=== PATIENT | female | born 1940 | race Caucasian/White ===

== ENCOUNTER 2019-05-18 16:58 | Day surgery (SDC) | payer MEDICARE, OTHER ==
[2019-05-18] MEDS: LACTATED RINGER'S 1,000 ML IV (18:12)
[2019-05-18] MEDS ORDERED: CLINDAMYCIN 900 MG/D5W (PMX) 50 ML IVPB (18:30)
[2019-05-18] MEDS ORDERED: FENTAnyl 50 MCG/ML VIAL (19:19)
[2019-05-18] MEDS ORDERED: MIDAZOLAM 1 MG/ML 2 ML INJ (19:19)
[2019-05-18] MEDS ORDERED: ROPIVACAINE 0.5 % 30 ML VIAL (20:27)
[2019-05-18] MEDS ORDERED: LIDOCAINE 2% (SDV) 5 ML INJ (20:44)
[2019-05-18] MEDS ORDERED: ETOMIDATE 20 MG INJ (20:44)
[2019-05-18] MEDS ORDERED: ONDANSETRON 4 MG INJ (20:44)
[2019-05-18] MEDS ORDERED: CEFAZOLIN 1 GM INJ (20:44)
[2019-05-18] MEDS: POLYMYXIN/BACITRACIN 1L IRRIG (20:56)
[2019-05-18] MEDS ORDERED: KETOROLAC 30 MG INJ IV (21:00)
[2019-05-18] MEDS ORDERED: FENTAnyl 50 MCG/ML VIAL IV (21:00)
[2019-05-18] MEDS ORDERED: HYDROmorphONE 1 MG/5 ML IV SYRINGE IV ×2 (21:00)
[2019-05-18] MEDS ORDERED: hydrALAzine 20 MG INJ IV (21:00)
[2019-05-18] MEDS ORDERED: DIPHENHYDRAMINE 50 MG INJ IV (21:00)
[2019-05-18] MEDS ORDERED: LABETALOL HCL 20MG INJ IV (21:00)
[2019-05-18] MEDS ORDERED: MEPERIDINE 25 MG INJ IV (21:00)
[2019-05-18] MEDS: ONDANSETRON 4 MG INJ IV (21:31)
[2019-05-18] MEDS: METOCLOPRAMIDE 10 MG INJ IV (21:32)
== END 2019-05-18 23:15 | disposition home or self-care (01) ==
LOC: SDS 16:58
DX: G56.01 Carpal tunnel syndrome, right upper limb (principal); S52.571G Other intraarticular fracture of lower end of right radius, subsequent encounter for closed fracture with delayed healing; X58.XXXD Exposure to other specified factors, subsequent encounter; E03.9 Hypothyroidism, unspecified
CPT/HCPCS: 64721; 73110-RT